=== PATIENT | male | born 1945 | race Caucasian/White ===

== ENCOUNTER → 2016-03-20 | Outpatient (CLI) | payer MEDICARE, OTHER | END | disposition home or self-care (01) | LOC: PCVCIMAG 10:41 | PROVIDERS: ATTEND Internal Medicine Cardiovascular Disease | DX: I25.5 Ischemic cardiomyopathy (principal); I25.10 Atherosclerotic heart disease of native coronary artery without angina pectoris; I10 Essential (primary) hypertension | CPT/HCPCS: 93325; 93351 ==

== ENCOUNTER → 2016-06-05 | Outpatient (CLI) | payer MEDICARE, OTHER ==
[~2016-06-05] MED LIST: REGADENOSON 0.4 MG/5 ML DISP.SYRIN. IV ONE
== END | disposition home or self-care (01) ==
LOC: PCVCIMAG 11:50
PROVIDERS: ATTEND Internal Medicine Cardiovascular Disease
DX: I25.10 Atherosclerotic heart disease of native coronary artery without angina pectoris (principal); I63.9 Cerebral infarction, unspecified; Z95.5 Presence of coronary angioplasty implant and graft
CPT/HCPCS: 78452; 93017; A9500; J2785

== ENCOUNTER → 2016-12-09 | Outpatient (CLI) | payer MEDICARE, OTHER | END | disposition home or self-care (01) | LOC: PCVCCLINIC 13:58 | PROVIDERS: ATTEND Internal Medicine Cardiovascular Disease | DX: I49.3 Ventricular premature depolarization (principal); I25.10 Atherosclerotic heart disease of native coronary artery without angina pectoris; I10 Essential (primary) hypertension; E78.00 Pure hypercholesterolemia, unspecified; I47.1 Supraventricular tachycardia; Z98.890 Other specified postprocedural states; Z85.46 Personal history of malignant neoplasm of prostate; Z79.899 Other long term (current) drug therapy; Z87.891 Personal history of nicotine dependence; Z88.8 Allergy status to other drugs, medicaments and biological substances | CPT/HCPCS: 80061; 93005; G0463 ==

== ENCOUNTER → 2017-09-15 | Outpatient (CLI) | payer MEDICARE, OTHER | END | disposition home or self-care (01) | LOC: PCVCCLINIC 15:49 | DX: I25.10 Atherosclerotic heart disease of native coronary artery without angina pectoris (principal); I10 Essential (primary) hypertension; E78.00 Pure hypercholesterolemia, unspecified; E11.9 Type 2 diabetes mellitus without complications; R94.31 Abnormal electrocardiogram [ECG] [EKG]; Z79.84 Long term (current) use of oral hypoglycemic drugs; Z87.891 Personal history of nicotine dependence; Z79.899 Other long term (current) drug therapy | CPT/HCPCS: 80061; 93005; G0463 ==

== ENCOUNTER → 2017-11-17 | Outpatient (CLI) | payer MEDICARE, OTHER ==
--- NOTE | 2017-11-17 14:25 | PCVCIMAG ---
EXAM: BILATERAL CAROTID DUPLEX INDICATION: Carotid Occlusive Disease. FINDINGS: Doppler Measurements (centimeters per second): RIGHT: Peak CCA-95, Peak ECA-94, Diastolic ICA-26, Peak ICA-78, ICA/CCA Ratio-0.8. LEFT: Peak CCA-72, Peak ECA-101, Diastolic ICA-17, Peak ICA-66, ICA/CCA Ratio-0.9. RIGHT CAROTID: The carotid bulb has mild plaque. The proximal internal carotid artery shows <40% stenosis. The common carotid artery shows no significant stenosis. The external carotid artery shows no significant stenosis. LEFT CAROTID: The carotid bulb has moderate plaque. The proximal internal carotid artery shows <40% stenosis. The common carotid artery shows no significant stenosis. The external carotid artery shows no significant stenosis. Antegrade flow in both vertebral arteries. IMPRESSION: <40% stenosis of the right internal carotid artery with mild plaque. <40% stenosis of the left internal carotid artery with moderate plaque. Incidental note is made of a 1.3 x 1.8 x 2.0 cm well-circumscribed hypoechoic solid nodule in the subcutaneous tissues of the right submandibular region. Please correlate clinically. This could represent an enlarged lymph node. It appears relatively avascular. LOC:[id number]
--- NOTE | 2017-11-17 18:22 | PCVCIMAG ---
APPROVED REPORT Study performed: 11/17/2017 13:02:07 Exam: Stress Echocardiogram Indication: CAD , Hypertension, Hyperlipidemia Patient Location: Echo lab Stress Nurse: 2 Room #: 2 Status: routine Ht: 5 ft 8 in HR: 55 bpm BP: 110/70 mmHg Rhythm: NSR Medical History Medical History: Diabetes, HTN, Hyperlipidemia Medications: Bystolic 5 mg Cardiac Risk Factors: HTN, DM, Hyperlipidemia Pretest Chest Pain Characteristics: No chest pain Exercise History: Indeterminate Procedure The patient underwent an Exercise Stress Test using the [place] Protocol. Blood pressure, heart rate, and EKG were monitored. An Echocardiogram was performed by hydroelectric plant technician in four stages in quad fashion. At peak stress, four selected images were obtained and placed side by side with resting images for comparison. Stress Test Details Stress Test: Exercise stress testing was performed using a [place] protocol. HR Resting HR: 53 bpmMax Heart Rate (APMHR): 149 bpm Max HR Achieved: 109 bpmTarget HR (85% APMHR): 126 bpm % of APMHR: 73 Recovery HR: 60 bpm HR response to stress: Normal HR response to stress BP Resting BP: 110/70 mmHg Max BP: 200/70 mmHg Recovery BP: 124/64 mmHg ECG Resting ECG: Sinus Rhythm, nonspecific ST-T abnormalities Stress ECG: Sinus Rhythm, NSSTT changes ST Change: Non-ischemic Arrhythmia: rare PAC,PVC Recovery ECG: Sinus Rhythm, NSSTT changes Recovery ST Change: Non-ischemic Recovery Arrhythmia: None Clinical Reason for Termination: Maximal effort Stress Symptoms: none Exercise duration: 6 min 00 sec Highest Stage Achieved: Stage 2: 2.5 mph at 12% grade. Exercise capacity: 7.0 METs Overall Exercise Capacity for Age: Poor Scale: Sedentary Angina Score: None No complications. Stress ECG Conclusion The patient exercised according to the [place] protocol for 6:00 mins; achieving a work level of 7.0 METS. The resting heart rate of 53 bpm kyra to a maximum heart rate of 109 bpm. This value represent 73% of the maximal, age-predicted heart rate. The resting blood pressure of 110/70 mmHg, kyra to a maximum blood pressure of 200/70 mmHg. The exercise test was stopped due to fatigue. Pre-Stress Echo The resting Echocardiogram showed normal left ventricular contractility with an estimated Ejection Fraction of about 55-60%. Normal wall motion in all segments on baseline images. Post-Stress Echo The stress Echocardiogram showed normal left ventricular contractility with an estimated Ejection Fraction of about 65-70%. Normal augmentation of wall motion in all segments on post stress images. Clinical No clinical or ECG evidence for ischemia. Conclusion Clinical Response: Non-ischemic Exercise Capacity: Average Stress ECG Response: Non-ischemic Stress Echo Images: Non-ischemic No clinical, EKG or echocardiographic evidence for ischemia. No echocardiographic evidence for exercise induced ischemia. Normal stress echocardiogram with maximal exercise stress. <Conclusion> No clinical, EKG or echocardiographic evidence for ischemia. No echocardiographic evidence for exercise induced ischemia. Normal stress echocardiogram with maximal exercise stress.
== END | disposition home or self-care (01) ==
LOC: PCVCIMAG 15:17
PROVIDERS: ATTEND Internal Medicine Cardiovascular Disease
DX: I65.23 Occlusion and stenosis of bilateral carotid arteries (principal); I25.10 Atherosclerotic heart disease of native coronary artery without angina pectoris; I10 Essential (primary) hypertension; E11.9 Type 2 diabetes mellitus without complications; E78.5 Hyperlipidemia, unspecified
CPT/HCPCS: 93325; 93351; 93880

== ENCOUNTER → 2018-05-31 | Outpatient (CLI) | payer MEDICARE, OTHER | END | disposition home or self-care (01) | LOC: PCVCCLINIC 15:39 | PROVIDERS: ATTEND Internal Medicine Cardiovascular Disease | DX: I25.10 Atherosclerotic heart disease of native coronary artery without angina pectoris (principal); I10 Essential (primary) hypertension; E78.00 Pure hypercholesterolemia, unspecified; E11.9 Type 2 diabetes mellitus without complications; I42.9 Cardiomyopathy, unspecified; I65.23 Occlusion and stenosis of bilateral carotid arteries; Z88.8 Allergy status to other drugs, medicaments and biological substances; Z79.899 Other long term (current) drug therapy; Z87.891 Personal history of nicotine dependence | CPT/HCPCS: 36415; 80061; 93005; G0463 ==

== ENCOUNTER → 2018-12-23 | Outpatient (CLI) | payer MEDICARE ==
--- NOTE | 2018-12-23 10:04 | PCVCIMAG ---
APPROVED REPORT Study performed: 12/23/2018 09:28:38 Exam: Stress Echocardiogram Indication: Atrial Fibrillation, CAD Stress Nurse: Catrina Darden RN Status: routine Ht: 5 ft 8 in HR: 68 bpm BP: 112/80 mmHg Rhythm: NSR Medical History Medical History: Atrial Fibrillation, CAD s/p stent, HTN, Hyperlipidemia Procedure The patient underwent an Exercise Stress Test using the [place] Protocol. Blood pressure, heart rate, and EKG were monitored. An Echocardiogram was performed by health technician hearing in four stages in quad fashion. At peak stress, four selected images were obtained and placed side by side with resting images for comparison. Stress Test Details Stress Test: Exercise stress testing was performed using a Melecio protocol. HR Resting HR: 68 bpmMax Heart Rate (APMHR): 148 bpm Max HR Achieved: 125 bpmTarget HR (85% APMHR): 125 bpm % of APMHR: 84 Recovery HR: 73 bpm HR response to stress: Normal HR response to stress BP Resting BP: 112/80 mmHg Max BP: 172/76 mmHg Recovery BP: 144/80 mmHg BP response to stress: Normal blood pressure response to stress. ECG Resting ECG: Sinus Rhythm Stress ECG: Sinus Rhythm Recovery ECG: Sinus Rhythm Clinical Reason for Termination: Maximal effort Exercise duration: 8 min sec Highest Stage Achieved: Stage 2: 2.5 mph at 12% grade. Exercise capacity: 10.10 METs Overall Exercise Capacity for Age: Normal Pre-Stress Echo The resting Echocardiogram showed normal left ventricular contractility with an estimated Ejection Fraction of about 55-60%. Normal wall motion in all segments on baseline images. Post-Stress Echo The stress Echocardiogram showed normal left ventricular contractility with an estimated Ejection Fraction of about 60-65%. Normal augmentation of wall motion in all segments on post stress images. Clinical No clinical or ECG evidence for ischemia. Conclusion Clinical Response: Non-ischemic Exercise Capacity: Below Average Stress ECG Response: Non-ischemic Stress Echo Images: Non-ischemic The left ventricle is normal in size and wall thickness in both the rest and stress images. Other Information Study Quality: Good <Conclusion> The left ventricle is normal in size and wall thickness in both the rest and stress images.
== END | disposition home or self-care (01) ==
LOC: PCVCIMAG 08:35
PROVIDERS: ATTEND Internal Medicine Cardiovascular Disease
DX: I48.91 Unspecified atrial fibrillation (principal); I25.10 Atherosclerotic heart disease of native coronary artery without angina pectoris; I47.1 Supraventricular tachycardia; E78.00 Pure hypercholesterolemia, unspecified; I48.0 Paroxysmal atrial fibrillation; E11.9 Type 2 diabetes mellitus without complications; I10 Essential (primary) hypertension; Z95.5 Presence of coronary angioplasty implant and graft; Z87.891 Personal history of nicotine dependence
CPT/HCPCS: 93325; 93351